=== PATIENT | female | born 1990 | race Caucasian/White ===

== ENCOUNTER 2018-02-26 02:58 | Inpatient (IN) | payer OTHER ==
[2018-02-26] MEDS ORDERED: XYLOCAINE 1% HCL 20 ML MDV IJ PRN (03:53)
[2018-02-26] MEDS ORDERED: PITOCIN 30 UNITS/ LR 500 ML 500 ML IV SCH ×2 (04:00→08:30)
[2018-02-26 04:36] LABS: BASOPHIL % 0.1 % (0.0-0.4); Basophil (Absolute #) 0.01 (0-0.4); Eosinophil % 1.1 % (0.00-5.0); Eosinophil (Absolute #) 0.12 (0-0.5); Granulocyte Absolute (ANC) 7.43 (1.4-6.9); Granulocytes % 71.1 % (36.0-66.0); Hematocrit 33.7 % (35-47); Hemoglobin 11.1 gm/dl (12.0-16.0); Lymphocyte (Absolute #) 2.19 (1.0-4.6); Lymphocytes % 20.9 % (24.0-44.0); Mean Cell Volume 98.5 fl (78-100); Mean Corpuscular Hgb Concent. 32.9 g/dl (32-36); Mean Platelet Volume 10.5 fl (6-9.5); Monocyte (Absolute #) 0.71 (0.0-1.3); Monocytes % 6.8 % (0.0-12.0); Platelet Count 228 K/mm3 (150-450); Red Blood Count 3.42 M/mm3 (4.1-5.4); Red Cell Distribution Width 11.9 % (11.5-14.0); White Blood Count 10.5 K/mm3 (4.0-10.5)
[2018-02-26 04:46] LABS: Mean Corpuscular Hemoglobin 32.4 pg (26-32)
[2018-02-26 05:41] LABS: Amphetamine,Urine NEGATIVE (NEGATIVE); Barbiturate,Urine NEGATIVE (NEGATIVE); Benzodiazepine,Urine NEGATIVE (NEGATIVE); Cocaine,Urine NEGATIVE (NEGATIVE); Methadone,Urine NEGATIVE (NEGATIVE); Opiate,Urine NEGATIVE (NEGATIVE); PCP,Urine NEGATIVE (NEGATIVE); THC,Urine NEGATIVE (NEGATIVE)
[2018-02-26] MEDS ORDERED: Lactated Ringers 1,000 ML IV ONE (08:09)
[2018-02-26] MEDS ORDERED: OB EPIDURAL NAROPIN/SUFENTANIL IN NACL EPIDURAL PRN (08:09)
[2018-02-26] MEDS ORDERED: Ephedrine Sulfate 50 MG/ML IV PRN (08:09)
[2018-02-26] MEDS ORDERED: Astramorph-Pf 5 MG/10 ML IJ ONE (08:50)
[2018-02-26] MEDS ORDERED: Decadron 4 MG INJ IV ONE (08:50)
[2018-02-26] MEDS ORDERED: LIDOCAINE HCL 2% 100 MG/5 ML IJ ONE (08:50)
[2018-02-26] MEDS ORDERED: Naropin 0.5% 30 ML VIAL IJ ONE (08:50)
[2018-02-26] MEDS ORDERED: Pitocin 10 UNITS/ML IV ONE (08:50)
[2018-02-26] MEDS: Lactated Ringers 1,000 ML IV SCH ×3 (09:04→13:53)
[2018-02-26] MEDS: THERAGRAN MULTIVITAMIN PO SCH (11:57)
[2018-02-26] MEDS: FEOSOL 325 MG PO SCH ×2 (11:57→20:58)
[2018-02-26] MEDS ORDERED: Pepcid 20 MG VIAL IV SCH (13:15)
[2018-02-26] MEDS ORDERED: BICITRA 30 ML CUP PO SCH (13:15)
[2018-02-26] MEDS ORDERED: Reglan 10 MG/2 ML IV SCH (13:15)
[2018-02-26] MEDS ORDERED: CEFAZOLIN 2 GM-D5W BAG** 2 GM/50 ML ML IV SCH (13:30)
[2018-02-26 13:53] LABS: Appearance SLIGHTLY CLOUDY (CLEAR); Bilirubin NEGATIVE (NEGATIVE); Blood NEGATIVE Ery/ul (0-5); Glucose NEGATIVE (NEGATIVE); Ketones NEGATIVE (NEGATIVE); Leukocyte Esterase NEGATIVE (NEGATIVE); Nitrite NEGATIVE (NEGATIVE); Protein,Urine Dip NEGATIVE (Negative); Specific Gravity 1.015 (1.005-1.025); Urobilinogen NEGATIVE mg/dL (0-1)
[2018-02-26 14:07] LABS: Barbiturate,Urine NEGATIVE (NEGATIVE)
[2018-02-26 14:08] LABS: Amphetamine,Urine NEGATIVE (NEGATIVE); Benzodiazepine,Urine NEGATIVE (NEGATIVE); Cocaine,Urine NEGATIVE (NEGATIVE); Methadone,Urine NEGATIVE (NEGATIVE); Opiate,Urine NEGATIVE (NEGATIVE); PCP,Urine NEGATIVE (NEGATIVE); THC,Urine NEGATIVE (NEGATIVE)
[2018-02-26 14:24] LABS: INR 0.99 (0.8-3.0)
[2018-02-26 14:27] LABS: PTT 25.2 SECONDS (25.3-37.0)
[2018-02-26 15:02] LABS: ABO TYPING B; Antibody Screen NEGATIVE (NEGATIVE); RH TYPING POSITIVE
--- NOTE | 2018-02-26 15:42 | OP ---
SURGERY DATE/TIME: 02/26/2018 1435 PREOPERATIVE DIAGNOSES: Nonreassuring heart tones. POSTOPERATIVE DIAGNOSIS: Nonreassuring heart tones. PROCEDURE: Primary section. SURGEON: Lito Willingham M.D. ANESTHESIA: Epidural. ESTIMATED BLOOD LOSS: 400 cc. IV FLUIDS: 1500 cc of crystalloid. URINE OUTPUT: 100 cc clear straw-colored urine. SPECIMEN: Placenta was sent for pathology. DESCRIPTION OF PROCEDURE: After informed, written consent was obtained, the patient was taken to the OR. She had her previously placed laboring epidural dosed by anesthesia and she was prepped and draped in the usual sterile fashion. After adequate level of anesthesia was assessed, a low transverse skin incision was made by knife and carried down through the subcutaneous fat to the level of the fascia. Fascia was nicked on both sides of the midline and extended in horizontal fashion using curved Mathur scissors. Superior free edge of the fascia was grasped with Elizabeth clamps and the underlying rectus muscles were resected free. The same was repeated inferiorly. Peritoneal cavity was opened and extended in horizontal fashion. A bladder blade was then inserted. A bladder flap was created and reflected over the lower uterine segment. Horizontal uterine incision was made by knife and carried down to the level of the amniotic membranes which were carefully artificially ruptured. A viable male infant was delivered from the vertex presentation with a strong cry immediately upon delivery. Oropharynx and nares were bulb suctioned free. The cord was clamped and cut and he was handed off to the awaiting nursery team. Next, the placenta was manually removed from the uterine cavity and the uterus was exteriorized. The uterine cavity was sponge curetted clean with lap sponge. Next, the uterine incision was closed with #1 chromic in a running locked fashion. Good closure and good hemostasis were achieved. Posterior cul-de-sac was wiped free of blood and clot with moist lap sponge and the uterus was returned to the peritoneal cavity. Lateral gutters were wiped free of blood and clot. Again, the uterine incision was inspected and noted to be hemostatic with good closure. Next, the fascia was closed with 0 Vicryl in running fashion. Good closure and good hemostasis were achieved. The subcutaneous fat was irrigated with warm sterile saline and any areas of bleeding were cauterized with electrocautery. Finally the skin layer was closed with 4-0 undyed Vicryl in running subcuticular fashion. Steri-Strips and occlusive dressing were placed over the incision and the patient was transferred to the recovery room in good condition.
[2018-02-26] MEDS ORDERED: CLARITIN 10 MG PO PRN (16:01)
[2018-02-26] MEDS ORDERED: TYLENOL EXTRA STRENGTH 500 MG PO PRN (16:01)
[2018-02-26] MEDS ORDERED: CORTISONE 1% CREAM TP PRN (16:01)
[2018-02-26] MEDS ORDERED: Nubain 10 MG/ML IV PRN (16:01)
[2018-02-26] MEDS ORDERED: PERCOCET TABLET 5/325MG PO PRN (16:01)
[2018-02-26] MEDS ORDERED: Anucort-HC SUPPOSITORY PR PRN (16:01)
[2018-02-26] MEDS ORDERED: LANSINOH 40 GM TOP PRN (16:01)
[2018-02-26] MEDS ORDERED: HOLD NARCOTIC ANALGESICS AND SEDATIVES X24 HR MC PRN (16:01)
[2018-02-26] MEDS ORDERED: BENADRYL 50 MG/ML IV PRN (16:01)
[2018-02-26] MEDS ORDERED: Narcan 0.4 MG/ML IV PRN (16:01)
[2018-02-26] MEDS ORDERED: Dulcolax 10 MG SUPP PR PRN (16:01)
[2018-02-26] MEDS ORDERED: DEMEROL 50 MG IV PRN (16:01)
[2018-02-26] MEDS ORDERED: Mylicon 80MG PO PRN (16:01)
[2018-02-26] MEDS ORDERED: MORPHINE SULFATE 2 MG INJ IV PRN (16:01)
[2018-02-26] MEDS ORDERED: Zofran 4 MG/2 ML VIAL IV PRN (16:01)
[2018-02-26] MEDS ORDERED: Dextrose 5%-Lr IV Solution 1000 ML 1,000 ML IV SCH (16:30)
[2018-02-26] MEDS: Colace 100 MG PO SCH (20:58)
[2018-02-27 04:55] LABS: BASOPHIL % 0.1 % (0.0-0.4); Basophil (Absolute #) 0.01 (0-0.4); Eosinophil % 0.1 % (0.00-5.0); Eosinophil (Absolute #) 0.01 (0-0.5); Granulocyte Absolute (ANC) 13.69 (1.4-6.9); Granulocytes % 81.9 % (36.0-66.0); Hematocrit 27.7 % (35-47); Lymphocyte (Absolute #) 1.82 (1.0-4.6); Lymphocytes % 10.9 % (24.0-44.0); Mean Corpuscular Hgb Concent. 32.5 g/dl (32-36); Mean Platelet Volume 10.2 fl (6-9.5); Monocyte (Absolute #) 1.16 (0.0-1.3); Platelet Count 198 K/mm3 (150-450); Red Blood Count 2.77 M/mm3 (4.1-5.4); Red Cell Distribution Width 11.8 % (11.5-14.0); White Blood Count 16.7 K/mm3 (4.0-10.5)
[2018-02-27 05:00] LABS: Mean Corpuscular Hemoglobin 32.4 pg (26-32)
[2018-02-27 06:19] VITALS: O2SAT 98
[2018-02-27] MEDS: MOTRIN 400 MG PO PRN ×2 (08:23→16:39)
[2018-02-27] MEDS ORDERED: FERREX 150 PO SCH (10:00)
[2018-02-27] MEDS ORDERED: M-M-R II Vaccine With Diluent SQ ONE (10:00)
[2018-02-27] MEDS ORDERED: NON-FORMULARY ITEM (Multivit With Calcium,Iron,Min [Womens Multiple Vitamins] 1 EACH) PO SCH (10:00)
[2018-02-27] MEDS: Colace 100 MG PO SCH ×2 (13:51→22:29)
[2018-02-27] MEDS: FEOSOL 325 MG PO SCH ×2 (13:52→22:30)
[2018-02-27] MEDS: THERAGRAN MULTIVITAMIN PO SCH (13:53)
[2018-02-27] MEDS ORDERED: Ambien 10 MG PO PRN (16:01)
[2018-02-27] MEDS: NORCO 5/325 MG PO PRN (22:28)
[2018-02-28] MEDS: MOTRIN 400 MG PO PRN (01:48)
[2018-02-28] MEDS: NORCO 5/325 MG PO PRN (09:16)
[2018-02-28] MEDS: THERAGRAN MULTIVITAMIN PO SCH (09:19)
[2018-02-28] MEDS: Colace 100 MG PO SCH (09:19)
[2018-02-28] MEDS: FEOSOL 325 MG PO SCH (09:20)
--- NOTE | 2018-02-28 09:41 | PCM.DS ---
Discharge Summary Date of Admission: 02/26/18 03:17 Admitting Physician: MARIBEL ALFORD Consults: Consults on Case 02/26/18 16:01 Notify Anesthesia Provider PRN Primary Care Provider: MARIBEL ALFORD Allergies Allergies No Known Drug Allergies Allergy (Verified 09/26/14 01:29) Hospital Summary - Hospital Course Hospital Course: Pt came in as 27 yo at 38w 5d sROM with contractions. Cervix 3cm dilated. FHT started showing decelerations and cervix was 4cm dilated so pt was taken to for intol of labor (for full details, see Dr. Alford ' surgical note). Postoperatively she has done well. Her bleeding is decreased without clots. She is up out of bed and tolerating po. Her Hgb decreased from 11.1 to 9.0. She is . Will be discharged to home on ibuprofen and norco prn. Will f/u with Dr. Alford in just over a week, due to the holidays. - Vitals & Intake/Output Vital Signs: Vital Signs Temperature 97.7 F 02/28/18 03:00 Pulse Rate 76 02/28/18 03:00 Respiratory Rate 18 02/28/18 03:00 Blood Pressure 116/58 02/28/18 03:00 O2 Sat by Pulse Oximetry 98 02/27/18 10:00 Intake & Output: Intake & Output 02/25/18 02/26/18 02/27/18 02/28/18 11:59 11:59 11:59 11:59 Intake Total 1000 1913 3500 Output Total 200 2700 Balance 800 -787 3500 Weight 111.769 kg 111.769 kg - Lab Result Diagrams: 02/27/18 04:43 Micro Results-Entire Visit: Microbiology 02/26/18 12:00 Urine Culture - Preliminary Urine, Catheterized NO GROWTH TO DATE - Procedures and Test Procedures and Tests throughout Hospitalization: Therapy Orders & Screens 02/26/18 15:45 Standby STAT Comment: Diagnosis: Labor Patient Discharge Exam General Appearance: no apparent distress, alert Neurologic Exam: oriented x 3, cooperative Skin Exam: normal color, warm, dry, No rash Eye Exam: eyes nml inspection Ears, Nose, Throat Exam: moist mucous membranes Neck Exam: normal inspection Respiratory Exam: normal breath sounds, lungs clear, No crackles/rales, No rhonchi, No wheezing Cardiovascular Exam: regular rate/rhythm, normal heart sounds, No murmur Gastrointestinal/Abdomen Exam: soft, other (fundus firm under umbilicus wound c/ d/i, well approximated, steri strips in place), No normal bowel sounds ( hypoactive but present), No tenderness Extremity Exam: swelling (1+ pretibial edema bilat) Back Exam: normal inspection, No rash Final Diagnosis/Problem List - Final Discharge Diagnosis/Problem (1) delivery delivered Current Visit: Yes Status: Acute Assessment & Plan: POD #2, doing great. home today with baby. (2) Anemia Current Visit: Yes Status: Acute Assessment & Plan: Home on iron. - Discharge Disposition: Home, Self-Care Condition: Good Prescriptions: New Docusate Sodium 100 mg [Colace 100 MG] 100 mg PO BID PRN #60 capsule PRN Reason: Constipation Ibuprofen 600 mg PO TID PRN #35 tablet PRN Reason: Pain Hydrocodone Bit/Acetaminophen [[place] 5-325 Tablet] 1 each PO Q4H PRN #30 tablet MDD 6 PRN Reason: Severe Pain Continue Multivit with Calcium,Iron,Min [Womens Multiple Vitamins] 1 each PO DAILY Ferrous Sulfate 325 mg PO BID Follow up with: MARIBEL ALFORD MD [Primary Care Provider] - 1 Week
[2018-02-28 11:16] VITALS: BP 127/83; PULSE 88
== END 2018-02-28 10:50 | disposition home or self-care (01) | DRG 998 ==
LOC: OB 03:17 → OBSVTOIN 03:17
PROVIDERS: ADMIT Family Medicine; ATTEND Family Medicine
DX: O76 Abnormality in fetal heart rate and rhythm complicating labor and delivery (principal); O90.81 Anemia of the puerperium; Z3A.38 38 weeks gestation of pregnancy; Z37.0 Single live birth
CPT/HCPCS: 36415; 64488; 76937; 76942; 80307; 81001; 81003; 83986; 85025; 85610; 85730; 86850; 86900; 86901; 87086; 88307; 90707; 94799; 96372; 99140; G0378; J0690; J1100; J2274; J2590; J2795; L0625; A9270-GY